=== PATIENT | female | born 1985 | race Hispanic/Latino ===

== ENCOUNTER 2017-10-02 22:09 | Emergency (ER) | payer OTHER ==
[~2017-10-02] VITALS: Ht 157.5 cm; Wt 85.0 kg
[2017-10-02 23:38] LABS: HEMATOCRIT 36.5 % (36.0-46.0); HEMOGLOBIN 12.8 G/DL (11.9-15.5); MCHC 35.1 G/DL (30.0-36.0); MCV 85.5 FL (83-99); PLATELET COUNT 227 K/uL (156-360); RBC DIS.WIDTH-SD 43.3 % (39-53); RED BLOOD COUNT 4.27 M/uL (3.80-5.20); WHITE BLOOD COUNT 13.2 K/uL (4.1-10.2)
[2017-10-02 23:47] LABS: CHLORIDE 108 mEq/L (99-109); POTASSIUM 3.6 mEq/L (3.7-5.4); SODIUM 139 mEq/L (136-147)
[2017-10-02 23:49] LABS: GLUCOSE 118 mg/dL (70-99)
[2017-10-02 23:53] LABS: CREATININE 0.7 mg/dL (0.6-1.3)
[2017-10-02 23:54] LABS: GFR ESTIMATE (CALCULATED) > 59 mL/min/; UREA NITROGEN (BUN) 8 mg/dL (9-23)
[2017-10-03 01:50] VITALS: BP 103/65
== END 2017-10-03 02:02 | disposition home or self-care (01) ==
LOC: TRA 22:09 → EME 22:09 → EDBD 22:09 → TRA 10-03 02:02
PROVIDERS: Emergency Medicine
DX: O9A.212 Injury, poisoning and certain other consequences of external causes complicating pregnancy, second trimester (principal); S02.69XA Fracture of mandible of other specified site, initial encounter for closed fracture; S80.01XA Contusion of right knee, initial encounter; S80.02XA Contusion of left knee, initial encounter; S20.219A Contusion of unspecified front wall of thorax, initial encounter; S00.83XA Contusion of other part of head, initial encounter; S16.1XXA Strain of muscle, fascia and tendon at neck level, initial encounter; H57.10 Ocular pain, unspecified eye; J32.0 Chronic maxillary sinusitis; Z3A.16 16 weeks gestation of pregnancy; V54.5XXA Driver of pick-up truck or van injured in collision with heavy transport vehicle or bus in traffic accident, initial encounter; Y92.411 Interstate highway as the place of occurrence of the external cause
CPT/HCPCS: 70450; 70486; 71046; 72125; 72170; 73564; 80048; 85027; 99281; 99285; J2270; J7040